=== PATIENT | male | born 1970 | race Caucasian/White ===

== ENCOUNTER 2021-04-27 03:54 | Emergency (ER) | payer SELFPAY ==
[2021-04-27] VITALS (35 sets, daily range): BP systolic 143–193; BP diastolic 85–109; PULSE 49–76; RESP 14–18; TEMP 36.4–36.5; O2SAT 96–100
--- NOTE | 2021-04-27 04:00 | DI.CT_ITS ---
Exam(s) CT ABDOMEN PELVIS CTA EXAM: CT ABDOMEN PELVIS CTA CLINICAL HISTORY: abdominal pain. TECHNIQUE: Imaging Protocol: Axial computed tomography images with coronal and sagittal reformatted images were created and reviewed CONTRAST MATERIAL: Intravenous: Omnipaque 350 Contrast volume:100 ml Oral: None COMPARISON: No exams were available for comparison FINDINGS: CHEST: VISUALIZED LUNG BASES: Mild increased markings in the right lower lobe. No pleural effusions CARDIAC: Heart size upper normal. No pericardial effusion. AORTA: There is no evidence of abdominal aortic aneurysm. There is mild-moderate atherosclerotic inv olvement the infrarenal abdominal aorta. Maximum diameter of the abdominal aorta is 1.9 cm.No eviden ce of aortic dissection. Celiac artery is patent. Superior mesenteric artery exhibits no significan t stenosis at its origin but exhibits moderate atherosclerotic narrowing starting 2.5 cm distal to it s origin. There is no embolization of this vessel evident. The inferior mesenteric artery is paten t. No significant stenosis at the aortic bifurcation. The common and external iliac arteries as wel l as both common femoral arteries appear unremarkable. Internal iliac arteries are patent bilaterall y. And both solitary renal arteries are patent. ABDOMEN: There is no ascites. LIVER: There is panic steatosis. No ominous focal hepatic lesions identified. Increased density in the liver around the gallbladder fossa is consistent with focal fatty sparing. GALLBLADDER/BILIARY: Gallbladder is mildly distended. Gallbladder wall appears slightly edematous. No obvious radiopaque calculi evident within its lumen. PANCREAS: No evidence of pancreatic mass nor dilatation of the pancreatic duct. SPLEEN: Spleen is not enlarged. There are no intrasplenic lesions. Splenic vein is patent. There is hypodensity within portal vein confluence and main portal vein which has appearance of probable admi xture of both opacified blood from the splenic vein and non-opacified blood coming up from the superi or mesenteric vein. No evidence of intraluminal thrombus within the intrahepatic portal veins. ADRENALS: There are no significant adrenal masses. KIDNEYS: No cysts evident. No calculi nor hydronephrosis. No solid renal masses. ABDOMINAL AORTA: The abdominal aorta is not enlarged. LYMPH NODES: There is no retroperitoneal nor para-aortic adenopathy. No obvious mesenteric masses. ABDOMINAL WALL: There is a fat only containing umbilical hernia. Also bilateral inguinal hernias graciela dent GI: There is no evidence of bowel obstruction, free air, nor abscess.Distal small bowel loops are fec alized but there is no evidence of small-bowel obstruction. PELVIS: LYMPH NODES: There is no intrapelvic nor inguinal adenopathy. GI: No evidence of appendicitis.There is diverticulosis of the sigmoid and descending colon.No obviou s acute diverticulitis. URINARY BLADDER: No calculi nor masses evident REPRODUCTIVE: Prostate size upper normal. OSSEOUS: No significant osseous lesions. Sacroiliac joints appear unremarkable. IMPRESSION: 1. There is mild-moderate atherosclerotic involvement of the abdominal aorta without evidence of aneu rysm in the abdominal aorta nor in the aortoiliac segments. 2. 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 There is no actual stenosis at origin of this vessel. No obvious ischemic appear ing bowel loops evident. No ascites. No free air. 3. Appears slightly edematous. No obvious radiopaque gallstones evident. Recommend follow-up ultras ound. 4. There is hypodensity within the portal vein confluence and main portal vein which has appearance o f probable admixture both opacified blood from the splenic vein and non-opacified blood from the supe rior mesenteric vein. This can be verified with Doppler ultrasound imaging. Study 1st read by [facility] Final report called by myself to ER physician 04/27/2021 8:50 a.m. RADIATION DOSE DELIVERED: 1,891.7mGy.cm Total DLP DATA REPOSITORY: All CT scans at this facility are submitted to the National Radiology Data Registry (NRDR) Dose Index Registry (DIR) with the [employer] (A[employer]). RADIATION OPTIMIZATION: All CT scans at this facility use at least one of these dose optimization te chniques: automated exposure control; mA and/or kV adjustment per patient size (includes targeted exa ms where dose is matched to clinical indication); or iterative reconstruction.
--- NOTE | 2021-04-27 04:05 | W.ED.GENAD ---
Discharge Plan Disposition Patient Disposition: HOME Condition: Stable Discharge Details Clinical Impression: Cholecystitis [facility] Provider: Surjit Bradley Home Meds and New Rx's Prescriptions: New amoxicillin-pot clavulanate 875-125 mg tablet 1 tab PO BID 10 Days Qty: 20 RF: 0 Continued omeprazole 20 mg Capsule,Delayed Release(Dr/Ec) 20 mg PO DAILY RF: 0 Discharge Instructions Instructions: Abdominal Pain (ED) Additional Instructions: Our care management team will assist in arranging a follow-up for you in general surgery clinic in approximately 48 hours. The office #[id number]. Take antibiotics as prescribed twice daily. Next dose will be this evening. I recommend you take an [id number] probiotic while on this medication. May use Tylenol as needed for pain. Observe a bland diet. Minimal fatty, fried, high protein foods such as meat. Return for the development of fever, worsening pain, or any other acute concerns. As we discussed, your CT imaging of the abdomen today showed a narrowing of the superior mesenteric artery. This should be followed up with a referral to vascular surgery for consultation by your primary care physician. Medical Decision Making <Joel Austin MD - Last Filed: 04/27/21 04:57> 50 yo male who states he is visiting from [place] comes in with abdominal pain. He states he was sitting and aroud 7pm started to have mid abdomen pain that has progressively worsened. HE states the past month he has had episodes like this but normally resolve after a small amount of time but tonight has persisted. He denies chest pain, fevers, chills, dyspnea. Denies prior abdominal surgeries, doesn't smoke, rarely drinks and denies drug use. He arrives appearing in pain. He localizes the pain to the abdomen around the umbilicus. He is tender with palpation to the mid abdomen near the umbilicus, no palpable hernias, no lower abdomen tenderness. Given location of pain and tenderness on exam concern for possible pancreatitis, cholecystitis, and mesenteric ischemia, will obtain labs and imaging to further evaluate. Given no chest pain or pressure, no dyspnea and tenderness in mid abdomen doubt acs at this time. patient feeling better though is precipitation equipment tender in the ruq and epigastric region of the abdomen, labs show wbc of [address] shows tace pericholecystitc stranding, will order ultrasound to further evaluate Differential Diagnosis Differential Diagnosis: pancreatitis, kidney stone, cholecystitis, mesenteric ischemia Imaging Data Radiologic Study: Attestation: I personally reviewed and interpreted this imaging study as follows: Imaging: CT Scan Radiologist's impression: IMPRESSION: Trace pericholecystic stranding, recommend clinical exclusion of cholecystitis with sonogram for further evaluation as clinically warranted. Lab Data Lab results reviewed: Yes I reviewed the patient's lab results. <Surjit Bradley MD - Last Filed: 04/27/21 12:05> Speaking received signout from Dr. Austin. Please see his note regarding details of the initial presentation, exam and plan of care. Patient follow-up ultrasound does reveal stones and sludge with a 3.8 mm gallbladder wall. Consistent with mild acute cholecystitis. Likely stuttering/smoldering etiology to this given his weeks of intermittent postprandial discomfort. Over read by in-house radiology, Dr. 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 I discussed the case with Dr. Brennan. We agree that the stenosis is not likely to be the cause of the patient's presentation today but should be followed over time and vascular surgery follow-up. Patient given fluids, Unasyn and I will place him on Augmentin. Repeat lactate obtained: 0.8 He states he is eager for local follow-up; will arrange us in surgery clinic. Discussed with him return precautions to seek reevaluation in the ER. Lab Data Lab results reviewed: Yes I reviewed the patient's lab results. Labs: Laboratory Results - last 24 hr 04/27/21 04/27/21 04/27/21 04:05 04:05 04:05 WBC 14.52 H RBC 5.06 Hgb 14.9 Hct 44.5 MCV 87.9 MCH 29.4 MCHC 33.5 RDW 12.1 Plt Count 321 MPV 9.0 Immature Gran % 0.4 Neutrophils % 82.9 Lymphocytes % 11.6 Monocytes % 4.7 Eosinophils % 0.1 Basophils % 0.3 Nucleated RBC % 0 Absolute Neutrophils 12.04 H Absolute Lymphocytes 1.68 Absolute Monocytes 0.68 Absolute Eosinophils 0.01 Absolute Basophils 0.04 VBG Lactate 1.7 H Sodium 140 Potassium 3.7 Chloride 103 Carbon Dioxide 25.3 Anion Gap 11.7 H BUN 17 Creatinine 1.2 Estimated GFR/1.73 m2 >= 60.00 Glucose 148 H Calcium 8.9 Magnesium 2.1 Total Bilirubin 0.5 Conjugated Bilirubin 0.1 AST 15 ALT 23 Alkaline Phosphatase 85 Total Protein 7.7 Albumin 4.0 Lipase 77 Urine Color Urine Clarity Urine pH Ur Specific [place] Urine Protein Urine Ketones Urine Blood Urine Nitrite Urine Bilirubin Urine Urobilinogen Ur Leukocyte Esterase Urine Glucose 04/27/21 04/27/21 05:00 09:52 WBC RBC Hgb Hct MCV MCH MCHC RDW Plt Count MPV Immature Gran % Neutrophils % Lymphocytes % Monocytes % Eosinophils % Basophils % Nucleated RBC % Absolute Neutrophils Absolute Lymphocytes Absolute Monocytes Absolute Eosinophils Absolute Basophils VBG Lactate 0.8 Sodium Potassium Chloride Carbon Dioxide Anion Gap BUN Creatinine Estimated GFR/1.73 m2 Glucose Calcium Magnesium Total Bilirubin Conjugated Bilirubin AST ALT Alkaline Phosphatase Total Protein Albumin Lipase Urine Color Yellow Urine Clarity Clear Urine pH 7.0 Ur Specific [place] 1.015 Urine Protein Negative Urine Ketones 15 H Urine Blood Negative Urine Nitrite Negative Urine Bilirubin Negative Urine Urobilinogen 0.2 Ur Leukocyte Esterase Negative Urine Glucose Negative HPI <Joel Austin MD - Last Filed: 04/27/21 04:57> General Mode of arrival: ambulatory. Date/Time Provider Initiated Documentation: 04/27/21 03:55. Limitations to Documentation: no limitations. Information obtained by: patient. History of Present Illness 50 year old M presents to the emergency department with the chief complaint of abdominal pain, described as moderate and severe, Quality is described as sharp, and is localized to the abdomen. Patient reports radiation to back. Patient started experiencing this hour(s) (9) and it has been constant. No relieving factors improve symptom(s), No exacerbating factors reported . Patient notes no other symptoms.. Patient did receive the following treatments prior to arrival, none Related Data Home Medications Medication Instructions Recorded Confirmed amoxicillin-pot clavulanate 1 tab PO BID 10 Days #20 tab 04/27/21 omeprazole 20 mg PO DAILY 04/27/21 04/27/21 Previous Rx's Medication Instructions Recorded amoxicillin-pot clavulanate 1 tab PO BID 10 Days #20 tab 04/27/21 Allergies Allergy/AdvReac Type Severity Reaction Status Date / Time No Known Allergies Allergy Unverified 04/27/21 07:15 General Stated Complaint: Abd Prob ANA: 3 Review of Systems <Joel Austin MD - Last Filed: 04/27/21 04:57> All systems reviewed & are unremarkable except as noted in HPI and below Constitutional Constitutional: Denies chills, Denies fever(s) and Denies weakness Cardiovascular Cardiovascular: Denies chest pain and Denies dyspnea Respiratory Respiratory: Denies cough and Denies dyspnea Gastrointestinal Gastrointestinal: Denies vomiting Musculoskeletal Musculoskeletal: Denies joint swelling Neurologic Neurologic: Denies weakness PFS <Joel Austin MD - Last Filed: 04/27/21 04:57> All Active Problems (Updated 04/27/21 @ 10:18 by Surjit Bradley MD) Cholecystitis (Acute) Social History Smoking/Tobacco Use Status: Never Smoking risk assessment performed?: Yes Alcohol Intake: current Alcohol Intake frequency: a few times a month Drug use: Never Substance use type: does not use Do you feel safe at home: Yes Do you feel safe in your relationship?: Yes Exam <Joel Austin MD - Last Filed: 04/27/21 04:57> Const General: other (in pain) Orientation: alert HENWI Head: normal to inspection Ears: external ears normal General nose exam: external nose normal Mouth: moist mucous membranes Eyes General: appearance normal, both eyes and all related structures Neck Neck: normal visual inspection Chest Chest: no tenderness Resp Effort & Inspection: normal respiratory effort and able to speak in complete sentences Cardio Rate: regular rate GI Palpation: tender Skin General skin exam: no rashes or lesions noted Neuro General: patient alert and patient oriented x3 Extrem General: normal to inspection Psych Mental Status: mental status grossly normal Course <Joel Austin MD - Last Filed: 04/27/21 04:57> Vital Signs Vital signs: Vital Signs Temperature 36.4 C L 04/27/21 04:00 Pulse 67 04/27/21 04:00 Respiratory Rate 18 04/27/21 04:00 Blood Pressure 172/89 H 04/27/21 04:00 Pulse Oximetry 99 04/27/21 04:00 Temperature 36.4 C L 04/27/21 04:00 Temperature Source Temporal Artery Scan 04/27/21 04:00 Pulse 67 04/27/21 04:00 Respiratory Rate 18 04/27/21 04:00 Respiratory Effort 04/27/21 04:03 Blood Pressure 172/89 H 04/27/21 04:00 Blood Pressure Position Supine 04/27/21 04:00 Pulse Oximetry 99 04/27/21 04:00 Oxygen Delivery Method Room Air 04/27/21 04:00 Oxygen Flow Rate 0 04/27/21 04:00 Pain Level 10 04/27/21 04:00 Sign Out <Joel Austin MD - Last Filed: 04/27/21 04:57> Sign Out Data: Sign Out Comment: mid and upper abdomen pain, wbc 14, ct with pericholecystic stranding, u/s pending Last updated by Joel Austin MD at 04/27/21 05:17 PAWSS <Joel Austin MD - Last Filed: 04/27/21 04:57> Have you Been Recently Intoxicated or Drunk Within the Last 30 days?: No Have you Ever Experienced Previous Episodes of Alcohol Withdrawal?: No Have you ever Experienced Withdrawal Seizures?: No Have you ever Experienced Delirium Tremens(DT)s?: No Have you ever undergone Alcohol Rehabilitation Treatment (i.e, inpt ot outpatient treatment programs)?: No Have you ever Experienced Blackouts?: No Have you ever Combined Alcohol with other Downers within the last 90 days?: No Have you ever Combined Alcohol with any other Substance of Abuse during the last 90 days?: No Positive Blood Alcohol level on Presentation? [PCS.BAL]: No Evidence of Increased Autonomic Activity (i.e. HR>120, tremor, sweating, agitation, nausea)?: No Result: 0
[2021-04-27] MEDS: Ketorolac 15 MG/ML VIAL IVP ×2 (04:08→07:26)
[2021-04-27] MEDS: Normal Saline Flush 10 ML SYR IVP ×2 (04:15→07:26)
[2021-04-27] MEDS: Omnipaque 350 MG/ML 100 ML BTL IJ (04:15)
[2021-04-27 04:16] LABS: Abs Immature Grans 0.06 10^3/uL (0.0-0.06); Absolute Basophil Count 0.04 10^3/uL (0.0-0.2); Absolute Eosinophil Count 0.01 10^3/uL (0.0-0.7); Absolute Lymphocyte Count 1.68 10^3/uL (1.2-3.4); Absolute Monocyte Count 0.68 10^3/uL (0.1-0.8); Basophils % 0.3; Eosinophils % 0.1; HCT 44.5 % (40.0-50.0); HGB 14.9 g/dL (13.5-17.5); Immature Grans % 0.4; Lymphocytes % 11.6; MCH 29.4 pg (27.0-33.0); MCHC 33.5 % (32.0-36.0); MCV 87.9 fL (80-95); Monocytes % 4.7; Neutrophils % 82.9; Nucleated RBC 0 %; Platelet Count 321 10^3/uL (130-400); RBC 5.06 10^6/uL (4.36-5.78); RDW 12.1 % (11.8-14.1); RDW-SD 38.7 fL; WBC 14.52 10^3/uL (4.4-10.8)
[2021-04-27 04:17] LABS: Lactate 1.7 mmol/L (0.6-1.4)
[2021-04-27 04:18] LABS: Absolute Neutrophil Count 12.04 10^3/uL (1.2-6.7)
[2021-04-27 04:34] LABS: ALT 23 U/L (16-63); AST 15 U/L (15-37); Alkaline Phosphatase 85 U/L (46-116); Anion Gap 11.7 mmol/L (3-11); BUN 17 mg/dL (7-18); Bilirubin, Direct 0.1 mg/dL (0.0-0.2); Bilirubin, Total 0.5 mg/dL (0.2-1.0); CO2 25.3 mmol/L (21.0-32.0); CREATININE 1.2 mg/dL (0.70-1.30); Calcium 8.9 mg/dL (8.5-10.1); Chloride 103 mmol/L (98-107); Glucose 148 mg/dL (74-106); Lipase 77 U/L (73-393); Magnesium 2.1 mg/dL (1.8-2.4); Potassium 3.7 mmol/L (3.5-5.1); Sodium 140 mmol/L (136-145); Total Protein 7.7 g/dL (6.4-8.2)
--- NOTE | 2021-04-27 04:48 | DI.VRAD_ITS ---
PROCEDURE INFORMATION: Exam: CTA Abdomen and Pelvis With Contrast Exam date and time: 04/27/2021 4:05 AM Age: 50 years old Clinical indication: Epigastric; Patient HX: Severe abdominal pain TECHNIQUE: Imaging protocol: Computed tomographic angiography of the abdomen and pelvis with contrast material. 3D rendering (Not supervised by radiologist): MIP and/or 3D reconstructed images were created by the technologist. Radiation optimization: All CT scans at this facility use at least one of these dose optimization techniques: automated exposure control; mA and/or kV adjustment per patient size (includes targeted exams where dose is matched to clinical indication); or iterative reconstruction. Contrast material: OMNIPAQUE 350; Contrast volume: 100 ml; Contrast route: INTRAVENOUS (IV); COMPARISON: No relevant prior studies available. FINDINGS: Aorta: No aortic aneurysm. No aortic dissection. Celiac trunk and mesenteric arteries: No occlusion or significant stenosis. Renal arteries: No occlusion or significant stenosis. Right iliac arteries: No occlusion or significant stenosis. Left iliac arteries: No occlusion or significant stenosis. Liver: Hepatic steatosis. Gallbladder and bile ducts: Trace pericholecystic stranding, recommend clinical exclusion of cholecystitis with sonogram for further evaluation as clinically warranted. Pancreas: Unremarkable. No mass. No ductal dilation. Spleen: Unremarkable. No splenomegaly. Adrenal glands: Unremarkable. No mass. Kidneys and ureters: Unremarkable. No solid mass. No hydronephrosis. Stomach and bowel: Colonic diverticula. Appendix: No evidence of appendicitis. Intraperitoneal space: Unremarkable. No free air. No significant fluid collection. Lymph nodes: Unremarkable. No enlarged lymph nodes. Urinary bladder: Unremarkable. No mass. Reproductive: Unremarkable as visualized. Bones/joints: No acute fracture. No dislocation. Soft tissues: Fat containing inguinal hernias. IMPRESSION: Trace pericholecystic stranding, recommend clinical exclusion of cholecystitis with sonogram for further evaluation as clinically warranted. Dictated and Authenticated by: Joel White MD. Ordering:CHRISTA Maldonado MD
[2021-04-27 05:07] LABS: Bilirubin Negative (Negative); Blood Negative (Negative); Clarity Clear (Clear); Glucose Negative (Negative); Ketones 15 mg/dL (Negative); Leukocyte Esterase Negative (Negative); Nitrite Negative (Negative); Specific Gravity 1.015 (1.005-1.025); Urobilinogen 0.2 EU/dL (Up TO 0.2)
[2021-04-27] MEDS: HYDROmorphone 2 MG/ML VIAL 1 MG IVP (05:11)
--- NOTE | 2021-04-27 06:30 | DI.US_ITS ---
Exam(s) US ABDOMEN LIMITED EXAM: US ABDOMEN LIMITED CLINICAL HISTORY: upper abdominal pain TECHNIQUE: Ultrasound abdomen performed using standard protocol. COMPARISON: CT CT ABDOMEN PELVIS CTA from 04/27/[address] ABDOMEN PELVIS CTA from 04/27/2021 FINDINGS: There is no ascites evident. LIVER: Liver is hyperechoic indicating steatosis. There are no discrete focal hepatic lesions. GALLBLADDER/BILIARY: There is both sludge and shadowing calculi within the gallbladder. The largest calculus measures 1.6 cm diameter. No pericholecystic fluid. Gallbladder wall 3-4 millimeters thick The common hepatic duct isnot dilated, measuring 4-5mm at the level of radha hepatis. PANCREAS: Not well seen due to overlying bowel gas RIGHT KIDNEY:No evidence of solid mass, calculus, nor hydronephrosis. No cortical cysts evident. IMPRESSION: 1. Cholelithiasis and evidence of acute cholecystitis. In addition, the patient was apparently tend er over this area during scanning today. Common hepatic duct is not dilated. 2. Pancreas not well seen to overlying bowel gas. Pancreas appeared unremarkable on CT scan perform ed earlier today. 3. There is no ascites. DATA REPOSITORY:
[2021-04-27] MEDS: AMPICILLIN/SULBACTAM 3 GM in Normal Saline 100 ML IVPB (09:18)
--- NOTE | 2021-04-27 09:30 | NUR.NOTE ---
A referral has been made to [facility] per Dr. Bradley for acute cholecystitis to be made within 48 hrs. I have faxed the referral and put the referral in the child daycare worker's box for follow-up.
[2021-04-27] MEDS: Normal Saline 500 ML IV (09:40)
[2021-04-27 09:57] LABS: Lactate 0.8 mmol/L (0.6-1.4)
[2021-04-27] MEDS: HYDROmorphone 2 MG/ML VIAL 0.5 MG IVP (10:11)
== END 2021-04-27 10:55 | disposition home or self-care (01) ==
PROVIDERS: Emergency Medicine; Emergency Provider Emergency Medicine
DX: K81.0 Acute cholecystitis (principal); K55.1 Chronic vascular disorders of intestine; R10.13 Epigastric pain
CPT/HCPCS: 36415; 80053; 83690; 96361; 96365; 96375; 96376; 99285; 74174; 76705; 81003; 82248; 83605; 83735; 85025; 99284; J0295; J1885; J3490